=== PATIENT | female | born 1995 ===

== ENCOUNTER 2019-10-02 23:50 | Emergency (ER) | payer OTHER ==
[2019-10-03] MEDS ORDERED: Ketorolac 60 MG/2 ML SDV IM ONE (00:07)
[2019-10-03] MEDS ORDERED: Acetaminophen/oxyCODONE 325-5 MG Tab PO STA (00:08)
[2019-10-03] MEDS ORDERED: Ketorolac 30 MG/ML SDV IM ONE (00:12)
[2019-10-03] MEDS ORDERED: Acetaminophen/oxyCODONE 325-5 MG Tab ONE (00:15)
[2019-10-03] MEDS ORDERED: Ketorolac 60 MG/2 ML SDV ONE (00:16)
--- NOTE | 2019-10-03 00:18 | EDM.PDOC ---
ED HPI GENERAL MEDICAL PROBLEM - General Chief Complaint: Abdominal Pain Stated Complaint: ABD PAIN Time Seen by Provider: 10/03/19 00:05 Source of Information: Reports: Patient. Denies: Old Records History Limitations: Reports: Other (no old records) - History of Present Illness INITIAL COMMENTS - FREE TEXT/NARRATIVE: 23 yo female visiting from out of town had sudden onset of severe pelvic pain tonight. No fever or nausea. Her menses is late. Does have a pHx of ovarian cyst that she thought felt different from this. No vaginal bleeding. Took ibuprofen 400 mg po before arrival. Onset: Sudden Onset Date: 10/02/19 Duration: Minutes:, Constant Location: Reports: Pelvis Quality: Reports: Sharp Severity: Severe Improves with: Reports: None Worsens with: Reports: None Context: Reports: Other (See HPI) Associated Symptoms: Denies: Diaphoresis, Fever/Chills, Nausea/Vomiting Treatments [employer] T[employer]ER [employer]: Reports: NSAIDS Lower Abdomen Pain Score (Numeric/FACES): 2 - Related Data Allergies Allergy/AdvReac Type Severity Reaction Status Date / Time No Known Allergies Allergy Verified 10/03/19 01:04 Home Meds: Home Meds NK [No Known Home Meds] 10/03/19 [History] ED ROS GENERAL - Review of Systems Review Of Systems: See Below Constitutional: Reports: No Symptoms HEENT: Reports: No Symptoms Respiratory: Reports: No Symptoms Cardiovascular: Reports: No Symptoms GI/Abdominal: Reports: Abdominal Pain (low in her pelvis). Denies: Black Stool, Bloody Stool, Constipation, Diarrhea, Distension, Hematemesis, Hematochezia, Melena, Nausea, Vomiting : Reports: Pain (suprapubic pain). Denies: Dysuria, Flank Pain, Hematuria, Urinary Retention Musculoskeletal: Reports: No Symptoms Skin: Reports: No Symptoms Neurological: Reports: No Symptoms ED EXAM, GI/ABD - Physical Exam Exam: See Below Exam Limited By: No Limitations General Appearance: Alert, WD/WN, Mild Distress, Obese Eyes: Bilateral: Normal Appearance Ears: Normal External Exam, Normal Canal, Hearing Grossly Normal Nose: Normal Inspection, No Blood Throat/Mouth: Normal Inspection, Normal Lips, Normal Oropharynx, Normal Voice, No Airway Compromise Head: Atraumatic, Normocephalic Neck: Normal Inspection Respiratory/Chest: No Respiratory Distress, Lungs Clear, Normal Breath Sounds, No Accessory Muscle Use Cardiovascular: Regular Rate, Rhythm, No Edema GI/Abdominal Exam: Soft, No Distention, Other (striae on entire abdomen. ). No: Non-Tender, Distended Back Exam: Normal Inspection. No: CVA Tenderness (R), CVA Tenderness (L) Extremities: Normal Inspection, Normal Range of Motion, Non-Tender, No Pedal Edema Neurological: Alert, Oriented, CN II-XII Intact, Normal Cognition, No Motor/Sensory Deficits Psychiatric: Normal Affect, Normal Mood Skin Exam: Warm, Dry, Intact, Normal Color, No Rash Course - Vital Signs Last Recorded V/S: Last Vital Signs Temp 36.3 C 10/03/19 01:11 Pulse 90 10/03/19 01:11 Resp 18 10/03/19 01:11 BP 130/79 10/03/19 01:11 Pulse Ox 100 10/03/19 01:11 Orthostatic Blood Pressure [ 129/79 Standing] Orthostatic Blood Pressure [ 132/82 Sitting] Orthostatic Blood Pressure [ 119/73 Supine] - Orders/Labs/Meds Orders: Active Orders 24 hr Category Date Time Status Orthostatic Vital Signs [RC] ASDIRECTED Care 10/03/19 00:59 Active Labs: Laboratory Tests 10/03/19 10/03/19 Range/Units 01:05 01:05 Urine Color Yellow (YELLOW) Urine Appearance Clear (CLEAR) Urine pH 6.5 (5.0-8.0) Ur Specific [place] >= 1.030 (1.008-1.030) Urine Protein Negative (NEGATIVE) mg/dL Urine Glucose (UA) Negative (NEGATIVE) mg/dL Urine Ketones Negative (NEGATIVE) mg/dL Urine Occult Blood Negative (NEGATIVE) Urine Nitrite Negative (NEGATIVE) Urine Bilirubin Negative (NEGATIVE) Urine Urobilinogen 0.2 (0.2-1.0) EU/dL Ur Leukocyte Esterase Negative (NEGATIVE) Urine RBC 0-5 (0-5) Urine WBC 0-5 (0-5) Ur Epithelial Cells Few Amorphous Sediment Not seen Urine Bacteria Moderate Urine Mucus Not seen Urine HCG, Qual Negative Meds: Medications Discontinued Medications Generic Name Dose Route Start Last Admin Trade Name Freq PRN Reason Stop Dose Admin Ketorolac Tromethamine 60 mg 10/03/19 00:07 10/03/19 00:20 Toradol IM 10/03/19 00:08 30 mg ONETIME ONE Administration Ketorolac Tromethamine 30 mg 10/03/19 00:12 10/03/19 00:23 Toradol IM 10/03/19 00:13 Not Given ONETIME ONE Oxycodone/Acetaminophen 1 tab 10/03/19 00:08 10/03/19 00:19 Percocet 325-5 Mg PO 10/03/19 00:09 1 tab ONETIME STA Administration - Re-Assessments/Exams Free Text/Narrative Re-Assessment/Exam: 10/03/19 01:39 Feeling much better after treatment. Departure - Departure Time of Disposition: 01:39 Disposition: Home, Self-Care 01 Condition: Fair Clinical Impression: Ruptured ovarian cyst - Discharge Information *PRESCRIPTION DRUG MONITORING PROGRAM REVIEWED*: No *COPY OF PRESCRIPTION DRUG MONITORING REPORT IN PATIENT CHANDU: No Instructions: Ovarian Cyst, [id number] Referrals: PCP,None [Primary Care Provider] - Forms: ED Department Discharge Additional Instructions: Take ibuprofen 600 mg every 6 hrs with food for pain relief, next dose after 6:30 am today. In addition you may take either acetaminophen OR [place] for added relief. Recheck if worse or not improving. Sepsis Event Note (ED) - Focused Exam Vital Signs: Vital Signs Temp Pulse Resp BP Pulse Ox 10/03/19 01:11 36.3 C 90 18 130/79 100 10/03/19 00:02 36.3 C 90 18 130/79 100 - My Orders Last 24 Hours: My Active Orders 10/03/19 00:59 Orthostatic Vital Signs [RC] ASDIRECTED - Assessment/Plan Last 24 Hours: My Active Orders 10/03/19 00:59 Orthostatic Vital Signs [RC] ASDIRECTED
== END 2019-10-03 01:52 | disposition home or self-care (01) ==
LOC: JP.ED 23:50
DX: N83.209 Unspecified ovarian cyst, unspecified side (principal)
CPT/HCPCS: 81001; 81025; 96372; 99284; A9270; J1885